=== PATIENT | male | born 1975 | race Caucasian/White ===

== ENCOUNTER 2017-03-06 17:40 | Emergency (ER) | payer SELFPAY ==
[~2017-03-06] VITALS: Ht 172.7 cm; Wt 71.0 kg
[2017-03-06 17:43] VITALS: BP 122/78
== END 2017-03-06 18:53 | disposition home or self-care (01) ==
LOC: ED 18:40
DX: J02.9 Acute pharyngitis, unspecified (principal); J00 Acute nasopharyngitis [common cold]
CPT/HCPCS: 71020; 87081; 87880; 99285

== ENCOUNTER 2018-11-10 19:18 | Emergency (ER) | payer SELFPAY ==
[~2018-11-10] VITALS: Ht 172.7 cm; Wt 72.4 kg
[2018-11-10 19:20] VITALS: BP 120/74
[2018-11-10] MEDS ORDERED: FLUORESCEIN OPHTHALMIC 1 MG STRIP ONE (19:42)
--- NOTE | 2018-11-10 20:03 | NUR ---
DC EDUCATION PROVIDED, PT DEMONSTRATES UNDERSTANDING. PT AMBULATED STEADILY TO DC WITH RN
== END 2018-11-10 20:08 | disposition home or self-care (01) ==
LOC: ED 19:56
DX: H10.023 Other mucopurulent conjunctivitis, bilateral (principal)
CPT/HCPCS: 99283

== ENCOUNTER 2019-08-13 12:34 | Emergency (ER) | payer MEDICAID ==
[~2019-08-13] VITALS: Ht 172.7 cm; Wt 75.2 kg
[2019-08-13 12:46] VITALS: BP 121/79
[2019-08-13] MEDS ORDERED: HYDROcodone/APAP 5/325 TABLET ONE (13:06)
--- NOTE | 2019-08-13 13:08 | NUR ---
PT CAME IN CO RIGHT SIDED RIB PAIN. PT MEDICATED PER MAR
[2019-08-13] MEDS ORDERED: HYDROcodone/APAP 5/325 TABLET PO ONE (13:30)
[2019-08-13] MEDS ORDERED: KETOROLAC 30 MG/1 ML ONE (14:24)
[2019-08-13] MEDS ORDERED: KETOROLAC 30 MG/1 ML IM ONE (15:00)
== END 2019-08-13 14:45 | disposition home or self-care (01) ==
LOC: ED 14:07
DX: S22.41XA Multiple fractures of ribs, right side, initial encounter for closed fracture (principal); R07.81 Pleurodynia; W01.0XXA Fall on same level from slipping, tripping and stumbling without subsequent striking against object, initial encounter; Y93.55 Activity, bike riding; Y92.488 Other paved roadways as the place of occurrence of the external cause; Y99.8 Other external cause status
CPT/HCPCS: 71250; 96372; 99284; J1885